=== PATIENT | female | born 1940 | race Caucasian/White ===

== ENCOUNTER 2023-03-04 13:26 | Outpatient (CLI) | payer OTHER | END 2023-03-04 13:27 | disposition home or self-care (01) | LOC: CSHRAD 13:26 | PROVIDERS: ATTEND Physician Assistant | DX: S32.001A Stable burst fracture of unspecified lumbar vertebra, initial encounter for closed fracture (principal); S32.011D Stable burst fracture of first lumbar vertebra, subsequent encounter for fracture with routine healing | CPT/HCPCS: 72072; 72100 ==